=== PATIENT | female | born 1965 | race Caucasian/White ===

== ENCOUNTER 2017-10-31 09:30 | Inpatient (IN) | payer BC ==
[2017-10-31 10:17] VITALS: BMI 24.7
--- NOTE | 2017-10-31 17:18 | HP ---
She is having surgery on 11/05/2017. HISTORY OF PRESENT ILLNESS: Ms. Tamayo is a 52-year-old female, G3, P3 with previou s history of severe cervical dysplasia undergoing a LEEP conization approximately 02/2017. Findings w ere consistent with severe cervical dysplasia with a positive endocervical margin. Repeat Pap smear in August showed ASCUS, cannot rule out high grade dysplasia and recent colposcopy biopsy with the endo cervical curettage showed benign findings. 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 In light of the pathology discrepancy and severe cervical dysplasia history, the patient is now desiring definitive surgical therapy with hysterectomy. PAST MEDICAL HISTORY: Hypertension and also cervical dysplasia as per HPI. SOCIAL HISTORY: She is a nonsmoker. PAST SURGICAL HISTORY: Endometrial ablation along with a tubal ligation and LEEP conization of the c ervix. ALLERGIES: She has no known drug allergies. FAMILY HISTORY: Noncontributory. PHYSICAL EXAMINATION: GENERAL: She is a well-developed, well-nourished female in no acute distress. VITAL SIGNS: Her height is 5 feet 3 inches, weight 142 pounds. BMI of 125.2. Blood pressure is 122 /88, pulse is 70, respirations are 16. HEENT: Within normal limits. CHEST: Clear to auscultation. HEART: Regular rate and rhythm. S1, S2 heart sounds. ABDOMEN: Soft, nontender, nondistended with no palpable masses. PELVIC: Vulva and vagina had no lesions. Cervix had no visible lesions. Uterus was small, nontende r. Adnexa are nontender with no masses. EXTREMITIES: Showed full range of motion with no abnormal skin findings. ASSESSMENT: This is a 52-year-old female with a history of high grade cervical dyspla catherine with recurrence and HPV type 16 positivity, desiring definitive surgical therapy. PLAN: Plan is to proceed with robotic total laparoscopic hysterectomy with bilateral salpingo-oophor ectomy scheduled for 11/05/2017. Risks and benefits of procedure discussed in detail. She is set fo r surgery on 11/05/2017.
[2017-11-05] MEDS ORDERED: CEFAZOLIN/Water 2 GM/20 ML SYRINGE ONE (09:19)
[2017-11-05] MEDS ORDERED: Gabapentin 300 MG CAP ONE (09:19)
[2017-11-05] MEDS ORDERED: CeleCOXIB 100 MG CAP ONE (09:19)
[2017-11-05] MEDS ORDERED: Famotidine/PF 20 mg/2ml Vial ONE (09:19)
[2017-11-05] MEDS ORDERED: Midazolam HCl 2 mg/2 ml Vial ONE (10:00)
[2017-11-05] MEDS ORDERED: Bupivacaine HCl 0.5%/Epinephrine 1:200,000/PF 30 ml Vial ONE (10:30)
[2017-11-05] MEDS ORDERED: Fentanyl 100 MCG/2 ML VIAL ONE ×3 (10:33→13:55)
[2017-11-05] MEDS ORDERED: Morphine 4 MG/ML VIAL SLOW IVP PRN (12:34)
[2017-11-05] MEDS ORDERED: Bisacodyl 10 MG SUPP PR PRN (12:34)
[2017-11-05] MEDS ORDERED: traMADol HCl 50 MG TAB PO PRN ×2 (12:34)
[2017-11-05] MEDS ORDERED: diphenhydrAMINE 25 MG CAP PO PRN (12:34)
[2017-11-05] MEDS ORDERED: Simethicone Chewable 80 MG TAB PO PRN (12:34)
[2017-11-05] MEDS ORDERED: Ondansetron HCl/PF 4 MG/2 ML Vial IVP PRN ×2 (12:34→12:35)
[2017-11-05] MEDS ORDERED: Promethazine HCl 25 MG/ML VIAL IM PRN ×2 (12:34→12:35)
[2017-11-05] MEDS ORDERED: Promethazine HCl 25 MG/ML VIAL SLOW IVP PRN (12:35)
[2017-11-05] MEDS ORDERED: Meperidine HCl/PF 25 MG/ML VIAL SLOW IVP PRN (12:35)
[2017-11-05] MEDS ORDERED: HYDROmorphone 2 MG/ML VIAL SLOW IVP PRN (12:35)
[2017-11-05] MEDS ORDERED: PHENYLEPHRINE-NS 100 MCG/ML 10 ML SYRINGE ONE (12:36)
[2017-11-05] MEDS ORDERED: ePHEDrine/0.9% NaCl/PF SYRINGE 50 mg/10 ml ONE (12:36)
[2017-11-05] MEDS ORDERED: PROPOFOL 200 MG/20 ML VIAL ONE (12:36)
[2017-11-05] MEDS ORDERED: Dexamethasone 20 MG/5 ML VIAL ONE (12:36)
[2017-11-05] MEDS ORDERED: Ondansetron HCl/PF 4 MG/2 ML Vial ONE (12:36)
[2017-11-05] MEDS ORDERED: Lidocaine 1% PF 5 ML VIAL ONE (12:36)
[2017-11-05] MEDS ORDERED: Glycopyrrolate 0.2 MG/ML 5 ML SYRINGE ONE (12:36)
--- NOTE | 2017-11-05 13:39 | OP ---
DATE OF PROCEDURE: 11/05/2017 PREOPERATIVE DIAGNOSIS: A 52-year-old female with history of high grade cervical dysp lasia with recurrent high-grade dysplasia. POSTOPERATIVE DIAGNOSES: 1. A 52-year-old female with history of high grade cervical dysplasia with recurrent high-grade dysplasia. 2. Desires definitive surgical therapy. PROCEDURE PERFORMED: Robotic total laparoscopic hysterectomy and bilateral salpingo-oophorectomy. SURGEON: Michelle Rogers M.D. BANKRUPTCY ATTORNEY SURGEON: Kathryn Morales D.O. ANESTHESIA: General endotracheal. ESTIMATED BLOOD LOSS: Less than 50 mL. COMPLICATIONS: None. COUNTS: Correct x2. ANTIBIOTICS: Two grams Ancef solar applications development engineer to the OR. PATHOLOGY: Uterus, cervix, bilateral fallopian tubes and ovaries. FINDINGS: 1. Normal-appearing bilateral fallopian tubes and ovaries. 2. Normal appearing ectocervix and uterus. 3. Clear urine present in Uriostegui catheter post-procedure with bladder was watertight over 300 mL dist ention intraoperatively. 4. Bilateral ureteral peristalsis visualized post procedure. DISPOSITION: To the recovery room stable. DESCRIPTION OF OPERATIVE PROCEDURE: The patient previously received informed consent in regard to [facility]. She was taken back to the operating room where she received a general anesthetic without comp lications. She was then placed in the dorsal lithotomy position with the use of Rowdy stirrups, prep ped and draped in usual fashion. A sidearm speculum was placed in the vagina at this time, a Uriostegui c atheter was placed also. The cervix was grasped with a Jennie thyroid clamp and there was some cervic al stenosis noted from the previous endometrial ablation the patient has had and LEEP procedure, this was remedied with the use of a hemostat and we are able to pass the uterine sound to 8 cm, a size 6 cm BRIANNA uterine manipulator with a 4.0 cm cervical cup was placed. At this time, attention was then turned to the abdomen where perspective trocar sites were infiltrated with 0.5% Marcaine with epineph rine. A 12 mm supraumbilical incision was made. Veress needle was entered into the peritoneal cavit y. Patient pressure was noted to be less than 5 mmHg. Abdomen was insufflated to a patient pressure of 15, approximately 4-1/2 liters carbon dioxide gas. Veress needle was then removed. A size 12 mm trocar was then placed through the supraumbilical incision. The robotic laparoscope was then introd uced through the trocar sleeve confirming proper entry. Additional bilateral lower quadrant 8 mm tro cars were placed under laparoscopic guidance along with an 11 mm right upper quadrant clinical data assistant port. The robot was then docked. The uterus was elevated from the pelvis, left infundibulopelvic ligamen t was isolated, was coagulated with bipolar fenestrated cautery and transected with monopolar scissor s. Serial coagulation and transection of broad ligament, hugging close to the uterus was carried out until the left round ligament was reached. It was coagulated and transected and the anterior leaf o f the broad ligament was then entered with the bladder flap being developed in usual fashion in a lay ering technique. The left uterine vessels were then skeletonized and coagulated internal cervical os region. This was carried on the right side of the uterus. Again, the right infundibulopelvic ligam ent was coagulated, transected serial coagulation with the bipolar fenestrated monopolar scissors wer e carried out until the right round ligament was reached. It was coagulated and transected. The ant erior leaf of the broad ligament was entered and the vesicouterine peritoneum was layered in a sharp and blunt dissection easily dissecting the bladder past the cervical vaginal junction which was rose cated by the cervical cup uterine manipulator. The right uterine vessels again were coagulated and t ransected internal cervical os region. At this time, the anterior colpotomy was then created from 13 -3 and 12-9 o'clock position, coagulating the uterine vessels again at the 3 and 9 o'clock position f or hemostasis. Then the posterior colpotomy was completed from 6-9 and 6-3 delivering the specimen w ithin the vaginal vault. The vaginal cuff was ensured to be hemostatic prior to cuff closure. A Ome ga needle cryogenic transport driver was switched out for the monopolar scissors. The vaginal cuff was then closed with a Stratafix suture and full thickness closure. Good hemostasis was confirmed. The pelvic sidewalls and pedicles were then all irrigated, hemostasis again was visualized and noted be hemostatic. The b ladder was distended over 300 mL of fluid and was watertight. Bilateral ureteral peristalses were vi sualized. The robot was then undocked. The excess carbon dioxide gas was released from the abdomen. The trocar sites were closed with a deep stitch of 0 Vicryl in the supraumbilical incision and a fi [id number] stitch fashion and the remainder of the trocar defect sites were closed and the skin wi th a 4-0 Monocryl subcuticular and Dermabond. The vaginal cuff was inspected vaginally with a sponge stick and noted be hemostatic. The patient was awakened from anesthesia and transferred to the [facility] very in stable condition.
[2017-11-05] MEDS ORDERED: tiZANidine HCl 4 MG TAB PO PRN (16:09)
[2017-11-05] MEDS: Ketorolac Tromethamine 30 MG/ML VIAL IVP SCH (17:36)
[2017-11-05] MEDS ORDERED: Zolpidem Tartrate 5 MG TAB PO SCH (21:00)
[2017-11-05] MEDS: Lisinopril 10 MG TAB PO SCH (21:08)
[2017-11-06] MEDS: Ketorolac Tromethamine 30 MG/ML VIAL IVP SCH (00:49)
[2017-11-06 05:51] LABS: Hemoglobin 11.1 g/dL (12.0-16.0); Mean Corpuscular HGB CONC 32.8 g/dL (32.0-36.0); Mean Corpuscular Hemoglobin 30.8 pg (27.0-31.0); Mean Platelet Volume 7.3 fL (7.4-10.4); Platelet Count 379 thou/uL (130-400); RBC Distribution Width 11.8 % (11.5-14.5); Red Blood Cell (RBC) Count 3.59 mill/uL (4.20-5.40); White Blood Cell (WBC) Count 14.1 thou/uL (4.8-10.8)
--- NOTE | 2017-11-06 08:15 | PDOC.EVN ---
Event Note - Event Note Event Note: Voiding, tolerating diet, ambulating. Ready to go home O:AFVSS. HCT 33.7% trochar sites, clean dry and intact. A/P: Post op day! robotic tlh/bso. H/O recurrent high grade cervical dysplasia. Doing well. D/c home. F/u pathology/2 week post op check.
[2017-11-06 08:59] VITALS: TEMP 98.2
[2017-11-06] MEDS ORDERED: Ibuprofen 800 MG TAB PO SCH ×2 (09:00)
[2017-11-06 09:48] VITALS: BP 109/59
[2017-11-06] MEDS: Lisinopril 10 MG TAB PO SCH (09:48)
--- NOTE | 2017-11-06 15:07 | DIS ---
DATE OF ADMISSION: 11/05/2017 DATE OF DISCHARGE: 11/06/2017 DIAGNOSES: 1. Recurrent high grade cervical dysplasia. 2. Desires definitive surgical therapy. PROCEDURE PERFORMED: Robotic total laparoscopic hysterectomy and bilateral salpingo-oophorectomy. SUMMARY OF HOSPITAL COURSE: Ms. Tamayo is a 52-year-old [place] female with prior endometri al ablation and tubal ligation who had a LEEP procedure performed 6 months prior for severe cervical dysplasia, positive endocervical margin. She had followup Pap smear showing ASCUS cells, cannot rule out high grade dysplasia. ECC was benign with biopsy and due to this discrepancy, another LEEP proc edure was indicated where patient desired definitive surgical therapy. She underwent uncomplicated r obotic TLH/BSO on 11/05/2017. Postoperatively, the patient has done well. She is ambulating, voidin g, and tolerating diet without difficulty. Postoperative hematocrit was appropriate at 33.7%. She i s afebrile with stable vital signs. She was discharged home with [id number] ibuprofen and tram adol prescription 50 mg q.6 hours p.r.n. pain. She has a followup in 2 and 6 weeks. Pathology is pe nding at time of discharge.
== END 2017-11-06 10:06 | disposition home or self-care (01) | DRG 743 ==
LOC: SURG A 11-05 09:05 → 3SE 11-05 15:04
PROVIDERS: ADMIT Obstetrics & Gynecology; ATTEND Obstetrics & Gynecology
PROC: 0UT94ZZ Resection of Uterus, Percutaneous Endoscopic Approach (ICD-10-PCS; principal; 2017-11-05)
PROC: 0UT74ZZ Resection of Bilateral Fallopian Tubes, Percutaneous Endoscopic Approach (ICD-10-PCS; 2017-11-05)
PROC: 0UT24ZZ Resection of Bilateral Ovaries, Percutaneous Endoscopic Approach (ICD-10-PCS; 2017-11-05)
PROC: 8E0W4CZ Robotic Assisted Procedure of Trunk Region, Percutaneous Endoscopic Approach (ICD-10-PCS; 2017-11-05)
DX: R87.611 Atypical squamous cells cannot exclude high grade squamous intraepithelial lesion on cytologic smear of cervix (ASC-H) (principal); A63.0 Anogenital (venereal) warts; I10 Essential (primary) hypertension
CPT/HCPCS: 36415; 85027; J0670; J1885; J2250; J2270; J3010; S0028